=== PATIENT | male | born 1995 | race Caucasian/White ===

== ENCOUNTER 2017-01-18 22:29 | Emergency (ER) | payer SELFPAY ==
[2017-01-18] MEDS ORDERED: Lidocaine 1% 10 MG/ML - 20 ML VIAL SUBCUT ONE (22:33)
[2017-01-18] MEDS ORDERED: SULFAMETHOXAZOLE/TRIMETHOPRIM 800/160 MG TABLET PO SCH (22:45)
[2017-01-18 23:15] VITALS: RESP 18; TEMP 97.6
--- NOTE | 2017-01-19 00:25 | PDOC ---
Eye Complaint HPI - General Chief Complaint: Eye Problem / Injury Stated Complaint: cyst impeding vision Date Seen by Provider: 01/19/17 Time Seen by Provider: 22:35 Source: POSITIVE: Patient Exam Limitations: POSITIVE: No limitations Nurse's Notes Reviewed & Considered: Yes - History of Present Illness Initial Comments: The patient is a 21-year-old male who presents to the emergency department with increasing size and pain in a cyst near his left eye. The patient reports that he has had a cyst near his left eye for the past several years. About a year ago he had this drained and was referred to the documentation liaison. The documentation liaison recommended that he see a plastic surgeon for removal. He states that he did not have the money to do that and never followed up. The size of the cyst is gradually gotten bigger over the past couple of months. It also has become more painful. He tried to drain it at home by poking it with a needle earlier this evening. He now has increased pain and swelling. Have you received a tetanus shot in the past 10 years?: Yes - Patient Home Medications Home Medications: Home Medications Sulfameth/Trimeth 800/160 Tab [Bactrim DS 800/160 Tab] 1 each PO BID #14 tablet 01/18/17 - Patient Allergies Allergies/Adverse Reactions: Allergies Allergy/AdvReac Type Severity Reaction Status Date / Time No Known Allergies Allergy Unverified 10/11/16 15:13 Past Medical History - heen HEENT History: Denies History Cardiovascular History: Denies History Respiratory History: Asthma Gastrointestinal History: Denies History Genitourinary History: Denies History Endocrine History: Denies History Musculoskeletal History: Denies History Neurological History: Denies History Blood Disorders: Denies History Psychiatric History: Denies History History of Sexually Transmitted Diseases: No Cancer History: Denies History In Past Year Been Physically Harmed or Verbally Threatened: No History of MDRO: No History of Other Communicable Diseases: No Tobacco Use: Former Smoker Alcohol Use: Occasionally Substance Use Type: None Previous Surgical History: Yes Type / Date of Surgery: SKIN LESION ABOVE LT EYE. RT HAND Anesthesia Reactions: No Malignant Hyperthermia: No Family History of Malignant Hyperthermia: No Significant Family History: No pertinent family hx Past Medical History Reviewed: Reviewed - No Changes ROS - Limitations ROS Limitations: No Limitations Constitution: DENIES: Chills, Fever Cardiovascular: REPORTS: Denies Cardiac Symptoms Respiratory: REPORTS: Denies Resp Symptoms Neurological: REPORTS: Denies Neuro Symptoms, Headache (He does report some headaches intermittently) Gastrointestinal: REPORTS: Denies GI Symptoms Eye Complaint Physical Exam - General Appearance General Appearance: POSITIVE: Alert, Cooperative, No Acute Distress - HEENT Eyes: POSITIVE: Other (Examination the left eye does reveal what appears to be a sebaceous cyst approximately 1-1/2 cm in diameter to the medial aspect of the orbit of the left eye, this does not involve the eyelid itself.) Ears: POSITIVE: Ears Normal Inspection - Skin Skin: POSITIVE: Normal Color - Respiratory / Cardiovascular Respiratory / CVS: POSITIVE: No Respiratory Distress, Breath Sounds Normal, Regular Rate/Rhythm, Heart Sounds Normal Procedures - Incision and Drainage Site: left orbit Skin Prep: Betadine Prep Local Anesthesia Used - Indicate Amt Used in Comment: Lidocaine 1%: Yes Blade Size: 11 I&D Treatment: Large Amount (Moderate amount of sebaceous material expressed from the cyst) Eye Complaint Progress - Patient's Progress MDM / ED Course: The sebaceous cyst was drained. There may have been some small component of infection and he'll be started on Bactrim DS twice a day for 7 days. He was advised to continue warm compresses to the area. He will return to the emergency room if he develops increased pain or swelling, fevers or chills, any worsening or change in symptoms. He was advised that this will likely return unless it is surgically removed. He previously had been advised follow-up with plastic surgery. He was given a number for the plastic surgeon in [place]. - Consult Counseled: POSITIVE: Patient, RE: DX, RE: Need for F/U Patient Care Time - Estimated PCT Patient Care Time (In Minutes): 25 Vital Signs - Recent Vital Signs Vital Signs: Vital Signs (Last 8 hours) Temp Pulse Resp BP Pulse Ox 01/18/17 22:31 97.6 F 59 L 18 126/77 99 - VS Reviewed Vital Signs Reviewed: Yes Discharge Clinical Impression: Infected sebaceous cyst Discharge Disposition: Discharged to Home Condition: Stable Prescriptions / Orders: Sulfameth/Trimeth 800/160 Tab [Bactrim DS 800/160 Tab] 1 each PO BID #14 tablet Patient Instructions Given at Discharge: Epidermal Inclusion Cysts (ED) Additional Instructions: The cyst in the inferior left eye was drained. This will likely recur if it is not surgically removed. Recommend follow-up with the plastic surgeon in [place] as recommended per the documentation liaison previously (Dr Bloom [phone]). There may have been some component of infection and you were started on Bactrim DS one twice a day for 7 days. Recommend continuation of warm compresses. Return to the emergency room if increased swelling or pain, fever or other sign of infection. Follow Up With: NONE,NONE [Primary Care Provider] -
== END 2017-01-18 23:19 | disposition home or self-care (01) ==
LOC: ER 22:29
DX: L72.3 Sebaceous cyst (principal); H57.8 Other specified disorders of eye and adnexa
CPT/HCPCS: 10060; 99282; J2001